=== PATIENT | male | born 1975 ===

== ENCOUNTER 2016-12-24 10:07 | Day surgery (SDC) | payer OTHER ==
[2016-12-19 08:23] VITALS: BMI 27.8
[2016-12-24] MEDS ORDERED: Bupivacaine HCl 0.25% PF (10 ml) Inj ONE (12:56)
[2016-12-24] MEDS ORDERED: ceFAZolin IV 1 gm in Dextrose 1 GM/50 ML BAG IVPB ONE (12:56)
[2016-12-24] MEDS: Bupivacaine HCl 0.25% PF (10 ml) Inj ONE ×2 (13:06→14:30)
[2016-12-24] MEDS ORDERED: Lactated Ringer's 1,000 ML IV ONE ×2 (13:07→14:54)
[2016-12-24] MEDS ORDERED: Midazolam 2 MG/2 ML VIAL ONE (13:28)
[2016-12-24] MEDS ORDERED: Propofol 10 mg/ml Inj (20 ML) ONE (13:30)
[2016-12-24] MEDS ORDERED: Neostigmine Methylsulfate 3mg/3ml Syringe IV ONE (13:57)
[2016-12-24] MEDS ORDERED: Bacitracin 500 Units/gm Oint Foilpak UD ONE (14:38)
[2016-12-24] MEDS ORDERED: Oxycodone/Acetaminophen 5/325 mg Tab PO PRN (14:45)
[2016-12-24] MEDS: HYDROmorphone 0.5 mg/0.5 ml ISec IVP PRN ×5 (15:06→15:45)
[2016-12-24 15:26] VITALS: O2SAT 100
[2016-12-24 16:13] VITALS: RESP 10; TEMP 98.2
[2016-12-24 17:44] VITALS: BP 118/67; PULSE 69
--- NOTE | 2016-12-26 09:18 | OP ---
PROCEDURE DATE: 12/24/2016 PREOPERATIVE DIAGNOSIS: Right inguinal hernia. POSTOPERATIVE DIAGNOSIS: Right inguinal hernia. PROCEDURE PERFORMED: Repair of right inguinal hernia. SURGEON: Casimiro Vance MD ANESTHESIA: General. JUNIOR LEGAL SECRETARY: Dr. Vernon. ESTIMATED BLOOD LOSS: 30 mL. POSTOPERATIVE CONDITION: Stable. INDICATIONS FOR SURGERY: This is a 41-year-old male with an injury to his right groin at work, susta ining a right inguinal hernia, who now will undergo elective repair. GROSS FINDINGS: The patient had a direct inguinal hernia consistent with a traumatic hernia. There were no other abnormal findings. PROCEDURE: The patient taken to the operating room. Bilateral groins were prepped and draped. Atte ntion was first turned to the right inguinal hernia site. A standard right inguinal incision was mad e. The external oblique aponeurosis was opened and the spermatic cord was looped with a [place] drai n. A large direct hernia was found. A large cord lipoma was also noted and was removed, consistent with excision of a 5 cm pelvic lipoma. The direct hernia sac was scored using the Bovie, inverted an d an extra-large plug was inserted. There was bleeding noted from the epigastric blood vessel and th is was repaired with Prolene and flow was confirmed by Doppler. Next, the plug was sutured in place with 2-0 Prolene suture. Wound was irrigated with copious amounts of saline solution. There was a l arge tissue defect and, for this reason, an adjacent tissue transfer closure greater than 30 cm was p erformed by widely mobilizing and using multiple layers of Monocryl, subcuticular Monocryl, and skin clips. The patient tolerated procedure well, returned to recovery room in stable condition. Casimiro Vance MD cc: [id number] TT: 12/24/2016 17:03:32 vt 12/26/2016 08:17:49
--- NOTE | 2016-12-26 09:22 | OP ---
PROCEDURE DATE: 12/24/2016 PREOPERATIVE DIAGNOSIS: Left inguinal hernia. POSTOPERATIVE DIAGNOSIS: Left inguinal hernia. PROCEDURE PERFORMED: Left inguinal hernia repair. PROCEDURE: The left groin was prepped and draped. A standard left inguinal incision was made. The left inguinal aponeurosis was opened and the spermatic cord was looped with a Jeff drain. Bleedin g within the spermatic cord was noted and the spermatic artery was repaired with 7-0 Prolene and this was confirmed by a flow Doppler. A pelvic lipoma of 5 cm in size was also removed. A direct hernia was identified and after dissection of the hernia sac was inverted. A ProLoop plug repair was performed using 2-0 Prolene. The wound was irrigated with copious amounts of saline solution. I t was closed in layers with Monocryl, subcuticular Monocryl and the overlying tissue was closed with skin clips. The patient tolerated the procedure well, returned to recovery room in stable condition. Casimiro Vance MD cc: [id number] TT: 12/26/2016 09:21:58 sn
== END 2016-12-24 17:30 | disposition home or self-care (01) ==
LOC: C.SDS 10:07
PROVIDERS: ATTEND Surgery
DX: K40.30 Unilateral inguinal hernia, with obstruction, without gangrene, not specified as recurrent (principal); D17.6 Benign lipomatous neoplasm of spermatic cord
CPT/HCPCS: 49507; 88302; C1781; J0690; J1170; J2250; J2704; J2710; J3010; J7120